=== PATIENT | female | born 1985 | race African-American/Black ===

== ENCOUNTER 2022-03-19 12:04 | Emergency (ER) | payer OTHER ==
[2022-04-27 14:27] LABS: BLOOD UREA NITROGEN,BUN 6 mg/dL (7.0-18.0); CARBON DIOXIDE,CO2 22.9 mmol/L (21.0-32.0); CHLORIDE,CL 104 mmol/L (98-107); ESTIMATED GFR 118 mL/min (>60); GLUCOSE RANDOM 97 mg/dL (74-106); POTASSIUM,K 3.7 mmol/L (3.5-5.1); SODIUM,NA 136 mmol/L (136-145)
== END 2022-03-19 15:00 | disposition left against medical advice (07) ==
LOC: MW.ED 12:04
DX: O99.891 Other specified diseases and conditions complicating pregnancy (principal); R53.83 Other fatigue; R06.02 Shortness of breath; Z3A.25 25 weeks gestation of pregnancy; Z20.822 Contact with and (suspected) exposure to COVID-19
CPT/HCPCS: 36415; 80053; 85027; 93005; 93010; 99284; 99285; U0002

== ENCOUNTER 2022-06-29 05:13 | Inpatient (IN) | payer OTHER ==
[2022-06-29] MEDS ORDERED: Oxytocin/0.9 % Sodium Chloride 30 UNIT/500 ML BAG IV SCH ×2 (05:30→05:45)
[2022-06-29] MEDS ORDERED: Terbutaline 1 MG/ML SDV SUBCUT PRN (05:30)
[2022-06-29] MEDS: Lactated Ringers 1,000 ML IV SCH ×2 (05:32→11:57)
[2022-06-29] MEDS ORDERED: Sodium Chloride 0.9% 20 ML SDV IV PRN (05:33)
[2022-06-29] MEDS ORDERED: Carboprost Tromethamine 250 MCG/1 ML Amp IM PRN (05:33)
[2022-06-29] MEDS ORDERED: Misoprostol 200 MCG Tab PO PRN (05:33)
[2022-06-29] MEDS ORDERED: Sodium Chloride 0.9% 2.5 ML Syringe FLUSH PRN (05:33)
[2022-06-29] MEDS ORDERED: Butorphanol 1 MG/ML SDV IVPUSH PRN (05:33)
[2022-06-29] MEDS ORDERED: Sodium Chloride 0.9% 10 ML Syringe FLUSH PRN (05:33)
[2022-06-29] MEDS ORDERED: Tranexamic Acid 1,000 MG in Sodium Chloride 0.9% 100 ML IV PRN (05:33)
[2022-06-29] MEDS ORDERED: Lidocaine 1% 50 ML MDV INJECT PRN (05:33)
[2022-06-29] MEDS ORDERED: Water For Irrigation,Sterile 1,000 ML Container IRR PRN (05:33)
[2022-06-29] MEDS ORDERED: Methylergonovine 0.2 MG/1 ML Amp IM PRN (05:33)
[2022-06-29] MEDS ORDERED: ePHEDrine 50 MG/ML SDV IVPUSH PRN ×4 (07:27→11:59)
[2022-06-29] MEDS ORDERED: Phenylephrine HCl In 0.9% NaCl 1 MG/10 ML Vial IVPUSH PRN ×2 (07:27→11:59)
[2022-06-29] MEDS ORDERED: Ropivacaine HCl/PF 400 MG in Premix Bag 1 BAG EPIDUR SCH ×2 (07:30→12:00)
[2022-06-29] MEDS ORDERED: Phenylephrine HCl In 0.9% NaCl 1 MG/10 ML Vial IVPUSH SCH ×2 (07:30→12:00)
[2022-06-29] MEDS ORDERED: Bisacodyl 10 MG Supp RECTAL PRN (15:04)
[2022-06-29] MEDS ORDERED: Acetaminophen 500 MG Tab PO PRN ×2 (15:04)
[2022-06-29] MEDS ORDERED: Ibuprofen 400 MG Tab PO PRN (15:04)
[2022-06-29] MEDS ORDERED: oxyCODONE 5 MG Tab PO PRN (15:04)
[2022-06-29] MEDS ORDERED: Benzocaine/Menthol 20%-0.5% Spray 78 GM Cannister TOP PRN (15:04)
[2022-06-29] MEDS ORDERED: Docusate Sodium 100 MG Cap PO PRN (15:04)
[2022-06-29] MEDS ORDERED: Lanolin 100% Cream 7 GM Tube TOP PRN (15:04)
[2022-06-29] MEDS ORDERED: Witch Hazel Medicated Pads 40/Jar TOP PRN (15:04)
[2022-06-29] MEDS: Ibuprofen 800 MG Tab PO PRN (18:26)
[2022-06-30] MEDS: Ibuprofen 800 MG Tab PO PRN (04:43)
== END 2022-06-30 17:35 | disposition home or self-care (01) | DRG 807 ==
LOC: MW.OBCHECK 05:13 → MW.OB 05:14 → MW.OBCHECK 05:30 → MW.OB 05:30 → OBSVTOIN 14:42 → MW.OB 18:53
PROVIDERS: ADMIT Obstetrics & Gynecology; ATTEND Obstetrics & Gynecology
PROC: 10E0XZZ Delivery of Products of Conception, External Approach (ICD-10-PCS; principal; 2022-06-29)
PROC: 10907ZC Drainage of Amniotic Fluid, Therapeutic from Products of Conception, Via Natural or Artificial Opening (ICD-10-PCS; 2022-06-29)
PROC: 3E0R3BZ Introduction of Anesthetic Agent into Spinal Canal, Percutaneous Approach (ICD-10-PCS; 2022-06-29)
PROC: 00HU33Z Insertion of Infusion Device into Spinal Canal, Percutaneous Approach (ICD-10-PCS; 2022-06-29)
DX: O99.02 Anemia complicating childbirth (principal); Z37.0 Single live birth; D64.9 Anemia, unspecified; Z3A.39 39 weeks gestation of pregnancy; Z88.8 Allergy status to other drugs, medicaments and biological substances; O77.0 Labor and delivery complicated by meconium in amniotic fluid; O69.1XX0 Labor and delivery complicated by cord around neck, with compression, not applicable or unspecified
CPT/HCPCS: 36415; 51702; 59025; 59409; 85014; 85018; 85027; 86592; 86850; 86900; 86901; A9270-GY; J2590; J7120